=== PATIENT | male | born 1970 | race Caucasian/White ===

== ENCOUNTER 2023-08-21 13:20 | Outpatient (AMB) | payer BC, SELFPAY ==
--- NOTE | 2023-08-21 13:35 | A.OFFVIS_ITS ---
Intake Intake Visit Reasons: low back pain Engraver Copperplate Required: No Assessment & Plan Assessment & Plan (1) Lumbar disc herniation with radiculopathy: Code(s): M51.16 - Intervertebral disc disorders with radiculopathy, lumbar region Plan Dear colleague Thank you for referring Juan Reed to the office today with a chief complaint of right thigh pain and numbness. HPI: This 53-year-old male developed acute right-sided back pain radiating down his thigh with associated numbness after he was shoveling snow about 4 weeks ago. Initially, it was only back pain but the following days he developed severe radiating pain. He tried anti-inflammatories and prednisone course without significant effect. Gabapentin takes the edge off the pain. He went to the chiropractor which gave him relief for 1 day but in the middle of the night he woke up again with the severe pain in his right thigh. In the following weeks, the pain did not improve and in fact even became worse. He tried another prednisone course. PMH: Hypertension and left knee meniscus repair Medications: Losartan Allergies: Erythromycin Social history: , works in [employer], nonsmoker. Physical Exam: Pleasant male in obvious agony. There is a grade 4- out of 5 weakness of the right iliopsoas. There is hypoesthesia in the right L3 dermatome. The right patellar reflex is mildly diminished. Straight leg raise produces pain into his thigh. He walks with an antalgic gait Radiological Studies: MRI done at [place] on 08/16/2023 shows a large L3-4 extraforaminal (far lateral) disc herniation compressing the right L3 nerve root. Impression/Plan: This 53-year-old male is suffering from a severe right L3 lumbar radiculopathy due to a large extraforaminal L3-4 disc herniation. These disc herniations are known for the excruciating pain not responding to pain medications. I offered him a right L3-4 microdiskectomy, extraforaminal approach. He is scheduled for 09/05/2023. He will obtain labs and an EKG in the area where he lives. Thank you for allowing me to participate in your patients care. total time spent was 50 minutes in counseling ,coordination of plan, personal review of imaging, surgical decision making and subsequent plan Jose Duggan MD, PhD Spine Fellowship Trained Neurosurgeon Director, [facility] Coding Level of Care Code New Pt Level 4 (88482) Diagnoses Lumbar disc herniation with radiculopathy M51.16
== END 2023-08-21 14:08 | disposition home or self-care (01) ==
PROVIDERS: Visit Provider Neurological Surgery
DX: M51.16 Intervertebral disc disorders with radiculopathy, lumbar region (principal)
CPT/HCPCS: 99204

== ENCOUNTER → 2023-08-21 13:20 | Outpatient (BNVA) | payer BC, SELFPAY | PROVIDERS: Visit Provider Neurological Surgery ==

== ENCOUNTER 2023-09-05 06:58 | Day surgery (SDC) | payer BC, SELFPAY ==
[2023-08-29 10:06] VITALS: BMI 29.8
--- NOTE | 2023-09-04 09:06 | P.CONAN_ITS ---
Documented by User: Natty Barroso NP 09/04/23 09:07 HPI - Anesthesia Eval Consult details Narrative: 53yo M for Right L3-4 Microdiscectomy with Extra Forminal Approach Medically cleared PMFSH Active Problems Active Problems: All Active Problems (Updated 08/29/23 @ 09:36 by Holly Ghosh, RN) Lumbar disc herniation with radiculopathy (Acute) Past Medical History Medical History (Updated 08/29/23 @ 09:36 by Holly Ghosh, RN) GERD (gastroesophageal reflux disease) Osteoarthritis Leg pain, right H/O degenerative disc disease HTN (hypertension) Low back pain Surgical History Surgical History (Updated 08/29/23 @ 10:06 by Holly Ghosh, LETICIA) History of esophagogastroduodenoscopy (EGD) Hx of knee surgery Social History Social History Are you a primary childcare center director to a significant other at home: No Do you presently have visiting nurse or other home services: No Patient Tobacco Use Status: Never used Tobacco Use of substances other than those prescribed or required for medical reasons: No Have you been hit, kicked, punched, or otherwise hurt by someone within the past year? If so, by whom?: No Are you DNR?: No Advance Directives: No Advance Directives Information Provided: Yes Advance Directives on File: No Recently lost weight without trying: No Nutrition Risks: No Nutritional Risk Poor oral hygiene: No Meds Allergies Allergy/AdvReac Type Severity Reaction Status Date / Time azithromycin AdvReac Intermediate Nausea Verified 08/29/23 10:05 Home Medications Medication Instructions Recorded Confirmed Last Taken Type cholecalciferol (vitamin D3) 50 50 mcg PO DAILY 08/29/23 08/29/23 Unknown History mcg (2,000 unit) capsule (Vitamin D3) coQ10 (ubiquinol) 100 mg capsule 100 mg PO DAILY 08/29/23 08/29/23 09/01/23 History gabapentin 300 mg capsule 300 mg PO TID 08/29/23 08/29/23 08/26/23 History ibuprofen 800 mg tablet 800 mg PO Q8H PRN Pain 08/29/23 08/29/23 08/26/23 History losartan 100 mg tablet 100 mg PO DAILY 08/29/23 08/29/23 09/05/23 History multivitamin 1 tab PO DAILY 08/29/23 08/29/23 Unknown History omeprazole magnesium 20 mg 20 mg PO 2XW 08/29/23 08/29/23 09/05/23 History tablet,delayed release (Prilosec OTC) Exam Height,Weight and Vital Signs: Height 6 ft Weight 99.79 kg Pertinent Lab Results Pertinent Lab Results: CBC and BMP from outside facility 08/2023 [place] Narrative Narrative: EKG 08/2023 SB @ 58 Assessment and Plan Assessment Anesthesia Assessment: Chart Reviewed Documented by User: Carmencita White MD 09/05/23 07:30 [facility] Past Medical History Medical History (Updated 08/29/23 @ 09:36 by Holly Ghosh RN) GERD (gastroesophageal reflux disease) Osteoarthritis Leg pain, right H/O degenerative disc disease HTN (hypertension) Low back pain Family History Family history of problems with anesthesia: No Surgical History Surgical History (Updated 08/29/23 @ 10:06 by Holly Ghosh RN) History of esophagogastroduodenoscopy (EGD) Hx of knee surgery History of Problems with Anesthesia: No Social History Social History Are you a primary childcare center director to a significant other at home: No Do you presently have visiting nurse or other home services: No Patient Tobacco Use Status: Never used Tobacco Use of substances other than those prescribed or required for medical reasons: No Have you been hit, kicked, punched, or otherwise hurt by someone within the past year? If so, by whom?: No Are you DNR?: No Advance Directives: No Advance Directives Information Provided: Yes Advance Directives on File: No Recently lost weight without trying: No Nutrition Risks: No Nutritional Risk Poor oral hygiene: No Meds Allergies Allergy/AdvReac Type Severity Reaction Status Date / Time azithromycin AdvReac Intermediate Nausea Verified 08/29/23 10:05 Home Medications Medication Instructions Recorded Confirmed Last Taken Type cholecalciferol (vitamin D3) 50 50 mcg PO DAILY 08/29/23 08/29/23 Unknown History mcg (2,000 unit) capsule (Vitamin D3) coQ10 (ubiquinol) 100 mg capsule 100 mg PO DAILY 08/29/23 08/29/23 09/01/23 History gabapentin 300 mg capsule 300 mg PO TID 08/29/23 08/29/23 08/26/23 History ibuprofen 800 mg tablet 800 mg PO Q8H PRN Pain 08/29/23 08/29/23 08/26/23 History losartan 100 mg tablet 100 mg PO DAILY 08/29/23 08/29/23 09/05/23 History multivitamin 1 tab PO DAILY 08/29/23 08/29/23 Unknown History omeprazole magnesium 20 mg 20 mg PO 2XW 08/29/23 08/29/23 09/05/23 History tablet,delayed release (Prilosec OTC) Exam Airway Mallampati Class: II TM Dist: >3cm Neck ROM: Full Assessment and Plan Assessment Anesthesia Assessment: Anesthesia Plan Discussed Final Anesthetic Review Family History of Problems with Anesthesia: No History of Problems with Anesthesia: No NPO: Yes ASA Class: II Final Preanesthetic Review: No Changes in Pt Med Stat, Meds/Allgs Chart Reviewed, Consent Obtained/Reviewed and Anes Risks/Benef Reviewed Patient Risk: Intermediate Procedure Risk: Intermediate Anesthetic Plan Anesthetic Plan: GA Disposition: Standard PACU
[2023-09-05] VITALS (10 sets, daily range): BP systolic 132–181; BP diastolic 76–100; PULSE 60–96; RESP 16–20; TEMP 36.2–36.6; O2SAT 96–97; BMI 29.8
--- NOTE | ~2023-09-05 | FL_ITS ---
INDICATION: Intraoperative fluoroscopy. FLUOROSCOPY: Fluoroscopy Time: 13.1 seconds Dose/air kerma: 9.3362 mGy Images saved: FINDINGS: Multiple intraoperative fluoroscopic images are submitted during reported L3-L4 microdiscectomy. Correlation with operative report. Evaluation is limited secondary to fluoroscopic technique. IMPRESSION: Intra-operative fluoroscopic imaging provided by radiology during reported L3-L4 microdiscectomy. Please refer to operative note for further information.
--- NOTE | 2023-09-05 06:59 | P.HPSUR_ITS ---
Pre-Procedural Eval Section A - 24 Hr Update-Section A only Date of Service: 09/05/23 The patient is an INPATIENT: No Changes since office visit: No Cold of Flu in the past 2 weeks, No New Medical Problems, No Changes in Medication and No Patient answered all questions The patient has been examined within 24 hours of the surgical procedure. The History & Physical has been completed within 30 days and I have reviewed it.: No Section B - Complete if H&P > 30 days Chief Complaint: Intervertebral disc disorders with radiculopathy, Allergies: Allergies Allergy/AdvReac Type Severity Reaction Status Date / Time azithromycin AdvReac Intermediate Nausea Verified 08/29/23 10:05 Review of Systems Sugical H&P ROS: Negative: Constitution, Cardiovascular, Respiratory, Neurological, Psychiatric, Hem-Onc, Allergic/Immunologic, Gastrointestinal, Genitourinary, Musculoskeletal, Integumentary, Endocrine and Eyes/Ea rs/Nose/Throat Exam Surgical H&P Exam: Not Evaluated: HEENT, Not Evaluated: Heart, Not Evaluated: Lungs, Not Evaluated: Extremities, Not Evaluated: Abdomen, Not Evaluated: Skin and Not Evaluated: Neurological Plan Diagnosis/Plan: Unchanged right L3-4 far lateral extraforaminal microdiskectomy Time Spent With Patient Time: Total time managing care of this patient today __5__ minutes.
[2023-09-05] MEDS: Lactated Ringers 1,000 ML 100 ML IVCONT (07:29)
[2023-09-05] MEDS: Gabapentin 300 MG CAPSULE PO (07:30)
--- NOTE | 2023-09-05 10:33 | PM.DS ---
DS: Providers Provider Date of Service: 09/05/23 Date of discharge: 09/05/23 Primary care physician: Nonstaff Physician Admitting clinician: Jose Duggan DS: Diagnosis Discharge Diagnosis (1) Lumbar disc herniation with radiculopathy: Status: Acute DS: Summary Time Attestation Discharge coordination time: Less than 30 minutes Quality: Safe Use of Opioids Does Pt have an Active Cancer Diagnosis on the Problem List?: No Quality: Stroke Does the patient have a stroke diagnosis?: No Physical Exam Vital Signs: Vital Signs: Last Vital Signs Temp 98 F 09/05/23 07:06 Pulse 60 09/05/23 07:06 Resp 20 09/05/23 07:06 BP 168/92 H 09/05/23 07:06 Pulse Ox 97 09/05/23 07:06 O2 Del Method Room Air 09/05/23 07:06 BMI result Body Mass Index 29.8 Discharge Plan Discharge Patient Disposition: Home, Self-Care Referrals: Physician,Nonstaff [Primary Care Provider] - 1 Week Discharge Medications: New docusate sodium [Colace] 100 mg capsule 100 mg PO BID Qty: 20 0RF oxycodone 5 mg tablet 5 mg PO Q4H PRN (Reason: pain) Qty: 20 0RF Rx Instructions: Partial Fill upon patient request. Continued multivitamin Tablet 1 tab PO DAILY ibuprofen 800 mg Tablet 800 mg PO Q8H PRN (Reason: Pain) gabapentin 300 mg Capsule 300 mg PO TID losartan 100 mg Tablet 100 mg PO DAILY omeprazole magnesium [Prilosec OTC] 20 mg Tablet,Delayed Release (Dr/Ec) 20 mg PO 2XW cholecalciferol (vitamin D3) [Vitamin D3] 50 mcg (2,000 unit) Capsule 50 mcg PO DAILY coQ10 (ubiquinol) 100 mg Capsule 100 mg PO DAILY Discharge Orders: Discharge Order (Routine); Ordered 09/05/23 Ordered By: Renan Strange Diet: Advance to usual diet Activity on Discharge: As tolerated Activity Restrictions/Additional Instructions: After your spinal surgery we ask you to observe the following restrictions/guidelines: Activity: It is normal to feel some discomfort as you increase your activity, but that will improve with time. We ask you avoid heavy lifting or acitivities that cause pain. As a general rule, 8lbs is a safe limit for lifting right after surgery. Walk as much as you feel comfortable but not to exhaustion. You will feel extra tired the first few days after surgery. Stay well hydrated. It is OK to walk up and down stairs You may return to driving when you are off narcotics (such as vicodin, oxycodone, dilaudid, etc), and you are back to normal functional capacity. If you have any concerns please check with office before driving. Return to work is specific to each patient and each surgery, so please speak with your doctor/PA at first follow up. Please bring paperwork such as FMLA at that time if you need it filled out. Medications: For optimum pain control, it is best to start with a combination of 500 mg of Tylenol every 4 hours with 600 mg of Motrin every 8 hours, and use narcotics as needed in between for breakthrough pain. We will give you a short supply of narcotics after surgery (usually one weeks worth). If you need more please call the office but do not use more than prescribed. You will need to give our office 48 hours notice if you need narcotics refilled and we do not fill narcotics on weekends or evenings. If you are on a narcotic, it is a good idea to take a stool softener such as colace or senna to avoid constipation If you take blood thinner such as aspirin, Plavix, Coumadin, Effient, Eliquis etc for conditions such as Afib, DVT, Pulmonary embolus, coronary disease, stents etc please speak with your surgeon about specific details as to when you can resume these medications. You can resume NSAIDs on post op day 1 (eg: Motrin, Naproxen, etc). Follow up: Please call the office, , after surgery to arrange a 3 week follow up for wound check. Wound Care: You may remove your dressing on the first day after surgery. ?You may ?leave open to air. Please do not remove the steri strips underneath. they will fall off on their own in one week. IT IS NORMAL FOR THE WOUND TO OOZE OR BE BLOODY FOR A FEW DAYS AFTER SURGERY. ?IF THIS HAPPENS JUST PLACE NEW DRESSING OVER IT TO AVOID STAINING CLOTHES. You may shower on post op day # 1 We ask that you do not let the water soak the wound. If it does get wet, just towel dry lightly. Please do not scrub your incision or place any type of chemical/ointment on the wound. No tub baths, pools or jacuzzis for one month. If you have any leaking or redness from your wound, or fevers, please call office
--- NOTE | 2023-09-05 11:09 | W.PM.OPN ---
Operative Note Operative Note Date of Service: 09/05/23
--- NOTE | 2023-09-05 11:14 | W.PM.OPN ---
Operative Note Operative Note Date of Service: 09/05/23 Narrative: Preop diagnosis: lumbar disc herniation L3-4, extraforaminal ( far lateral) with lumbar radiculopathy Postop diagnosis: same Procedure: Right L3-4 lumbar microdiskectomy, extraforaminal approach with microscope Description of procedure: This patient is suffering from a right L3 lumbar radiculopathy due to an L3-4 extraforaminal lumbar disc herniation compressing the L3 nerve root. The patient was offered a lumbar microdiskectomy through an extraforaminal approach. The procedure and complications were explained. The patient was consented. The patient was brought to the operating room and endotracheally intubated. The patient was turned in the prone position on Marcellus frame. Prepping and draping was done followed by time-out. The lateral border of the L3-4 facet joint was marked on the skin with x-ray. A right paramedian incision was made. The muscle fascia was opened. Sequential dilators were inserted followed by a 18 mm Metrx tube. the lateral border of the L3-4 facet joint as well as the transverse process of L L3 and L L4 were exposed. The microscope was brought in. The lateral part of facet joint was resected with a high-speed drill. The medial border of the L L4 pedicle was identified as well as the foramen. I went into the Kambin's triangle and exposed the intervertebral disc. I was expecting to find a large free fragment but to my surprise I was able to maneuver a short and long nerve without resistance under the L3 nerve root. We reviewed the images again and made sure we were at the correct level and. I then removed more of the proximal facet joint so I could ever get the nerve hook higher towards the L3 pedicle but again no resistance was found. I did find a perforation in the annulus as a sign that there had been an injury in the past. Physician assistant professor of physics took over the procedure and performed hemostasis and closure of the incision in 2 layers. Steri-Strips were used to approximate the incision. An Oppsite with tegaderm was used to cover the incision. All sponge and needle counts were correct. The patient was extubated and transported in stable condition to recovery room. Surgeon: Jose Duggan MD Assist: deirdre Patterson Anesthesia: general Estimated blood loss: minimal Specimen: none Deposition: Discharge home
== END 2023-09-05 12:56 | disposition home or self-care (01) ==
PROVIDERS: Visit Provider Neurological Surgery
PROC: (CPT 63056; principal; 2023-09-05 08:40)
DX: M51.16 Intervertebral disc disorders with radiculopathy, lumbar region (principal); M79.651 Pain in right thigh; M76.11 Psoas tendinitis, right hip; I10 Essential (primary) hypertension; Z79.899 Other long term (current) drug therapy; Z88.1 Allergy status to other antibiotic agents; Z98.890 Other specified postprocedural states
CPT/HCPCS: 63056; J0131; J0690; J1100; J1885; J2250; J2371; J2405; J2704; J3010

== ENCOUNTER → 2023-09-05 06:58 | Outpatient (BNV) | payer BC, SELFPAY | PROVIDERS: Visit Provider Physician Assistant | DX: M51.16 Intervertebral disc disorders with radiculopathy, lumbar region (principal) | CPT/HCPCS: 63056; 99024 ==

== ENCOUNTER 2023-09-26 10:18 | Outpatient (AMB) | payer BC, SELFPAY ==
--- NOTE | 2023-09-26 10:22 | A.SPINEOV_ITS ---
Intake Intake Visit Reasons: 1st post op Intake Note: Mr. Reed is here today for 1st Post op. Advisory Application Developer Required: No Allergies azithromycin Adverse Reaction (Intermediate, Verified 08/29/23 10:05) Nausea Assessment & Plan Assessment & Plan (1) Lumbar disc herniation with radiculopathy: Code(s): M51.16 - Intervertebral disc disorders with radiculopathy, lumbar region Plan Procedure: Right L3-4 lumbar microdiskectomy Juan comes in today for his 1st postoperative visit. He reports he is very satisfied with the surgery and feels much better than he did pre-operatively. The patient reports he is up, walking around, and completing the majority of his ADLs. He reports that he no longer suffers from his severe R sided shooting radiculopathy. He does still have some residual internal thigh numbness / tingling on the R side, but feels this is also improving. He had many questions regarding postoperative healing course and returning to activity. I answered all of his questions to the best of my ability. No new neurological deficits. The patient is able to ambulate well, rises from a seated position without difficulty. Incision sites are closed, well healing, with no signs of drainage. There is no need for continued routine follow-up with Juan at this time. He is doing very well. He may follow-up on an as-needed basis. Unruly Duggan MD,PhD [facility] Coding Level of Care Code Global (00654) Diagnoses Lumbar disc herniation with radiculopathy M51.16
== END 2023-09-26 10:41 | disposition home or self-care (01) ==
PROVIDERS: Visit Provider Physician Assistant
DX: M51.16 Intervertebral disc disorders with radiculopathy, lumbar region (principal)
CPT/HCPCS: 99024

== ENCOUNTER → 2023-09-26 10:18 | Outpatient (BNVA) | payer BC, SELFPAY | PROVIDERS: Visit Provider Physician Assistant ==